=== PATIENT | male | born 1990 | race African-American/Black ===

== ENCOUNTER 2019-02-15 18:51 | Inpatient (IN) | payer SELFPAY ==
[~2019-02-15] VITALS: Ht 170.2 cm; Wt 95.4 kg
[2019-02-15 22:46] LABS: CHLORIDE 110 mEq/L (98-107)
[2019-02-15 23:03] LABS: BASOPHILS % 0.7 % (0.0-2.0); EOSINOPHILS % 2.4 % (0.0-5.0); HEMATOCRIT. 30.9 % (42.0-52.0); HEMOGLOBIN. 9.5 g/dL (14.0-18.0); LYMPHOCYTES % 21.1 % (20.0-50.0); MEAN CORPUSCULAR VOLUME 71.3 fL (80.0-94.0); MEAN PLATELET VOLUME 7.6 fl (7.4-10.4); MONOCYTES % 6.4 % (2.0-8.0); NEUTROPHILS % 69.4 % (40.0-76.0); PLATELET 404 x1000/uL (130-400); RED BLOOD CELL COUNT 4.34 mill/uL (4.7-6.1); RED CELL DISTRIBUTION WIDTH 21.3 % (11.6-14.6)
[2019-02-15] MEDS ORDERED: FUROSEMIDE 40MG/4ML VIAL IVP NR (23:30)
[2019-02-15] MEDS ORDERED: ASPIRIN 325MG EC TABLET PO ONE (23:30)
[2019-02-16] VITALS (7 sets, daily range): BP systolic 143–191; BP diastolic 76–114
[2019-02-16] MEDS ORDERED: ERGO2000 MT (01:42)
[2019-02-16] MEDS ORDERED: MINO2.5T2 PO (01:42)
[2019-02-16] MEDS ORDERED: AMLO2.5T2 PO (01:42)
[2019-02-16] MEDS ORDERED: SIMV20TA2 MT (01:42)
[2019-02-16] MEDS ORDERED: ALD50 PO (01:42)
[2019-02-16] MEDS ORDERED: CARV25TA47 PO (01:42)
[2019-02-16] MEDS ORDERED: HYDR100T26 PO (01:42)
[2019-02-16] MEDS ORDERED: CLON1PAT11 TP (01:42)
[2019-02-16] MEDS ORDERED: SODI650T PO (01:42)
[2019-02-16] MEDS ORDERED: ACETAMINOPHEN 325MG TABLET PO PRN (04:15)
[2019-02-16] MEDS ORDERED: HYDRALAZINE 20MG/ML VIAL IV PRN (04:15)
[2019-02-16] MEDS: HYDRALAZINE HCL 100MG TABLET PO SCH ×3 (06:37→21:30)
[2019-02-16] MEDS ORDERED: FUROSEMIDE 40MG/4ML VIAL IVP SCH (09:00)
[2019-02-16] MEDS ORDERED: AMLODIPINE 5MG TABLET PO SCH (09:00)
[2019-02-16] MEDS ORDERED: LOSARTAN POTASSIUM 25 MG TABLET PO SCH (09:00)
[2019-02-16] MEDS: CARVEDILOL 6.25 MG TABLET PO SCH ×2 (11:02→20:07)
[2019-02-16] MEDS: DOXAZOSIN MESYLATE 4MG TABLET PO SCH (11:02)
[2019-02-16] MEDS: FUROSEMIDE 40MG/4ML VIAL IVP SCH (17:25)
[2019-02-16 18:34] LABS: CLARITY URINE CLEAR (CLEAR); COLOR URINE YELLOW (YELLOW); KETONES URINE NEGATIVE (NEGATIVE); LEUKOCYTE ESTERASE URINE NEGATIVE (NEGATIVE); NITRITE URINE NEGATIVE (NEGATIVE); OCCULT BLOOD URINE NEGATIVE (NEGATIVE); PH URINE 6.5 (4.5-8.0); PROTEIN URINE NEGATIVE (NEGATIVE); SPECIFIC GRAVITY URINE 1.006 (1.005-1.030); UROBILINOGEN URINE 0.2 E.U./dL (0.2-1.0)
[2019-02-17 04:45] VITALS: BP 142/97
[2019-02-17] MEDS: HYDRALAZINE HCL 100MG TABLET PO SCH ×3 (06:22→21:36)
[2019-02-17] MEDS: FUROSEMIDE 40MG/4ML VIAL IVP SCH ×2 (06:22→16:51)
[2019-02-17 06:28] LABS: HEMATOCRIT. 31.5 % (42.0-52.0); HEMOGLOBIN. 9.8 g/dL (14.0-18.0); MEAN CORPUSCULAR HEMOGLOBIN 22.1 pg (28.0-32.0); MEAN CORPUSCULAR VOLUME 71.2 fL (80.0-94.0); PLATELET 392 x1000/uL (130-400); RED BLOOD CELL COUNT 4.43 mill/uL (4.7-6.1); RED CELL DISTRIBUTION WIDTH 20.8 % (11.6-14.6)
[2019-02-17 08:00] VITALS: BP 146/90
[2019-02-17] MEDS: CARVEDILOL 6.25 MG TABLET PO SCH ×2 (09:22→20:50)
[2019-02-17] MEDS: DOXAZOSIN MESYLATE 4MG TABLET PO SCH (09:23)
[2019-02-17 12:00] VITALS: BP 158/100
[2019-02-17 15:43] LABS: PLATELET ESTIMATE NORMAL
[2019-02-17] MEDS ORDERED: METOLAZONE 10MG TABLET PO NR (16:00)
[2019-02-17 16:01] VITALS: BP 143/85
[2019-02-17 20:00] VITALS: BP 162/109
[2019-02-17 20:16] VITALS: BP 152/96
[2019-02-18 00:28] VITALS: BP 156/97
[2019-02-18 04:25] VITALS: BP 161/99
[2019-02-18] MEDS: FUROSEMIDE 40MG/4ML VIAL IVP SCH (06:34)
[2019-02-18] MEDS: HYDRALAZINE HCL 100MG TABLET PO SCH ×2 (06:34→13:19)
[2019-02-18 08:00] VITALS: BP 165/111
[2019-02-18] MEDS ORDERED: MINOXIDIL 10MG TABLET PO SCH (09:00)
[2019-02-18] MEDS: DOXAZOSIN MESYLATE 4MG TABLET PO SCH (10:06)
[2019-02-18] MEDS: CARVEDILOL 6.25 MG TABLET PO SCH ×2 (10:06→20:43)
[2019-02-18 10:11] LABS: A/G RATIO 0.8 (0.7-1.7); ALBUMIN 2.7 g/dL (2.9-4.4); ALPHA-1-GLOBULIN 0.3 g/dL (0.0-0.4); ALPHA-2-GLOBULIN 0.9 g/dL (0.4-1.0); BETA GLOBULIN 1.1 g/dL (0.7-1.3); GAMMA GLOBULINS 1.2 g/dL (0.4-1.8); GLOBULIN TOTAL 3.4 g/dL (2.2-3.9); M-SPIKE Not Observed g/dL (Not Observed); TOTAL PROTEIN SERUM 6.1 g/dL (6.0-8.5)
[2019-02-18 12:00] VITALS: BP 158/85
[2019-02-18 16:00] VITALS: BP 157/85
[2019-02-18 17:11] LABS: ANTI-NUCLEAR ANTIBODIES DIRECT Negative (Negative)
[2019-02-18 18:10] VITALS: BP 157/85
[2019-02-19 08:18] LABS: COMPLEMENT C3 146 mg/dL (82-167)
== END 2019-02-18 20:40 | disposition home or self-care (01) | DRG 194 ==
LOC: ER 18:51 → 6WST 23:23
PROVIDERS: ADMIT Internal Medicine; ATTEND Internal Medicine
DX: I13.0 Hypertensive heart and chronic kidney disease with heart failure and stage 1 through stage 4 chronic kidney disease, or unspecified chronic kidney disease (principal); E43 Unspecified severe protein-calorie malnutrition; N17.9 Acute kidney failure, unspecified; N18.9 Chronic kidney disease, unspecified; I50.9 Heart failure, unspecified; F17.200 Nicotine dependence, unspecified, uncomplicated; F12.90 Cannabis use, unspecified, uncomplicated; Z53.29 Procedure and treatment not carried out because of patient's decision for other reasons; E66.9 Obesity, unspecified; D64.9 Anemia, unspecified; Z82.49 Family history of ischemic heart disease and other diseases of the circulatory system; Z68.32 Body mass index [BMI] 32.0-32.9, adult; Z79.899 Other long term (current) drug therapy
CPT/HCPCS: 36415; 71045; 76770; 80048; 80061; 82550; 83735; 83880; 84155; 84165; 84484; 85007; 85027; 86038; 86160; 93005; 93970; 96374; 99285; C1893; J1940